=== PATIENT | female | born 1950 | race Caucasian/White ===

== ENCOUNTER 2023-03-22 14:50 | Inpatient (IN) | payer BC ==
[2023-03-22 16:46] VITALS: BMI 26.6
[2023-03-22] MEDS ORDERED: Albuterol 200 PUFF (6.7GM INHALER) INH PRN (17:44)
[2023-03-22] MEDS: Acetaminophen 325 MG TAB PO SCH ×2 (18:48→23:47)
[2023-03-22] MEDS: Acetaminophen/Codeine 30-300mg Tablet PO SCH ×2 (18:49→23:48)
[2023-03-22] MEDS: Carvedilol 25 MG TAB PO SCH (21:26)
[2023-03-22] MEDS: Losartan 25 MG TAB PO SCH (21:26)
[2023-03-22] MEDS: Atorvastatin Calcium 10 MG TAB PO SCH (21:26)
[2023-03-22] MEDS: Ascorbic Acid 500 mg Chewable Tablet PO SCH (21:26)
[2023-03-22] MEDS: Senokot S 8.6-50 MG TAB PO SCH (21:26)
[2023-03-23] MEDS: Acetaminophen/Codeine 30-300mg Tablet PO SCH ×3 (05:56→18:39)
[2023-03-23] MEDS: Acetaminophen 325 MG TAB PO SCH ×3 (05:57→18:39)
[2023-03-23] MEDS: Amlodipine 5 MG TAB PO SCH (08:41)
[2023-03-23] MEDS: Senokot S 8.6-50 MG TAB PO SCH ×2 (08:42→21:37)
[2023-03-23] MEDS: Digoxin 0.125 MG TAB PO SCH (08:42)
[2023-03-23] MEDS: Aspirin 325 mg Enteric Coated Tablet PO SCH (08:43)
[2023-03-23] MEDS: Losartan 25 MG TAB PO SCH (08:43)
[2023-03-23] MEDS: Ascorbic Acid 500 mg Chewable Tablet PO SCH ×2 (08:43→21:37)
[2023-03-23] MEDS: Ferrous Sulfate 325 MG TAB PO SCH (08:43)
[2023-03-23] MEDS: Furosemide 40 MG TAB PO SCH (08:43)
[2023-03-23] MEDS: Carvedilol 25 MG TAB PO SCH ×2 (08:44→21:37)
[2023-03-23] MEDS: Amiodarone 200 MG TAB PO SCH (08:44)
[2023-03-23] MEDS: Rivaroxaban 10 MG TAB PO SCH (18:39)
[2023-03-23] MEDS: diphenhydrAMINE 25 MG CAP PO PRN (21:37)
[2023-03-23] MEDS: Atorvastatin Calcium 10 MG TAB PO SCH (21:37)
[2023-03-24] MEDS: Acetaminophen/Codeine 30-300mg Tablet PO SCH ×4 (01:04→18:06)
[2023-03-24] MEDS: Acetaminophen 325 MG TAB PO SCH ×4 (01:05→18:02)
[2023-03-24] MEDS: Senokot S 8.6-50 MG TAB PO SCH ×2 (09:28→21:03)
[2023-03-24] MEDS: Losartan 25 MG TAB PO SCH (09:28)
[2023-03-24] MEDS: Digoxin 0.125 MG TAB PO SCH (09:29)
[2023-03-24] MEDS: Ascorbic Acid 500 mg Chewable Tablet PO SCH ×2 (09:29→21:03)
[2023-03-24] MEDS: Amlodipine 5 MG TAB PO SCH (09:30)
[2023-03-24] MEDS: Furosemide 40 MG TAB PO SCH (09:31)
[2023-03-24] MEDS: Aspirin 325 mg Enteric Coated Tablet PO SCH (09:31)
[2023-03-24] MEDS: Ferrous Sulfate 325 MG TAB PO SCH (09:31)
[2023-03-24] MEDS: Amiodarone 200 MG TAB PO SCH (09:31)
[2023-03-24] MEDS: Carvedilol 25 MG TAB PO SCH ×2 (09:32→21:03)
[2023-03-24] MEDS: Rivaroxaban 10 MG TAB PO SCH (17:32)
[2023-03-24] MEDS: Atorvastatin Calcium 10 MG TAB PO SCH (21:03)
[2023-03-25 01:12] LABS: Bilirubin Negative (Negative); Blood, Urine Negative (Negative); Clarity Clear (Clear); Glucose, Urine (Dipstick) Negative (Negative); Ketone, Urine Negative (Negative); Leukocyte Negative (Negative); Nitrite Negative (Negative); Protein, Urine (Dipstick) Negative (Neg-Trace); Specific Gravity, Urine 1.015 (1.005-1.030); Urobilinogen 0.2 mg/dL (Less than 2); pH, Urine 5.5 (5.0-9.0)
[2023-03-25 01:14] LABS: Bacteria/HPF Rare-Few HPF (None Seen); CAUTI Indications for Culture Alt mental st,lethar; Mucous/LPF None Seen LPF (<2+); RBC/HPF None Seen HPF (0-3); Squamous Epithelial None Seen HPF (0-3); WBC/HPF None Seen HPF (0-3)
[2023-03-25 01:15] LABS: Urine Culture Reflex No No
[2023-03-25] MEDS: Acetaminophen 325 MG TAB PO SCH ×2 (01:41→05:11)
[2023-03-25] MEDS: Acetaminophen/Codeine 30-300mg Tablet PO SCH ×2 (01:42→05:14)
[2023-03-25] MEDS: Ascorbic Acid 500 mg Chewable Tablet PO SCH ×2 (08:34→21:11)
[2023-03-25] MEDS: Digoxin 0.125 MG TAB PO SCH (08:34)
[2023-03-25] MEDS: Carvedilol 25 MG TAB PO SCH ×2 (08:35→21:11)
[2023-03-25] MEDS: Aspirin 325 mg Enteric Coated Tablet PO SCH (08:35)
[2023-03-25] MEDS: Amlodipine 5 MG TAB PO SCH (08:35)
[2023-03-25] MEDS: Amiodarone 200 MG TAB PO SCH (08:35)
[2023-03-25] MEDS: Senokot S 8.6-50 MG TAB PO SCH ×2 (08:35→21:11)
[2023-03-25] MEDS: Ferrous Sulfate 325 MG TAB PO SCH (08:35)
[2023-03-25] MEDS: Losartan 25 MG TAB PO SCH (08:36)
[2023-03-25] MEDS: Furosemide 40 MG TAB PO SCH (08:36)
[2023-03-25] MEDS: Acetaminophen 325 MG TAB PO PRN ×2 (12:33→21:16)
[2023-03-25] MEDS: Rivaroxaban 10 MG TAB PO SCH (17:56)
[2023-03-25] MEDS: Atorvastatin Calcium 10 MG TAB PO SCH (21:11)
[2023-03-25] MEDS: diphenhydrAMINE 25 MG CAP PO PRN (21:17)
[2023-03-26] MEDS: Amlodipine 5 MG TAB PO SCH (08:28)
[2023-03-26] MEDS: Digoxin 0.125 MG TAB PO SCH (08:28)
[2023-03-26] MEDS: Losartan 25 MG TAB PO SCH (08:29)
[2023-03-26] MEDS: Furosemide 40 MG TAB PO SCH (08:29)
[2023-03-26] MEDS: Senokot S 8.6-50 MG TAB PO SCH ×2 (08:29→20:13)
[2023-03-26] MEDS: Ascorbic Acid 500 mg Chewable Tablet PO SCH ×2 (08:29→20:14)
[2023-03-26] MEDS: Amiodarone 200 MG TAB PO SCH (08:30)
[2023-03-26] MEDS: Aspirin 325 mg Enteric Coated Tablet PO SCH (08:30)
[2023-03-26] MEDS: Ferrous Sulfate 325 MG TAB PO SCH (08:30)
[2023-03-26] MEDS: Carvedilol 25 MG TAB PO SCH ×2 (08:31→20:15)
[2023-03-26] MEDS: Rivaroxaban 10 MG TAB PO SCH (16:46)
[2023-03-26] MEDS: Cyclobenzaprine 10 MG TAB PO PRN (16:48)
[2023-03-26] MEDS: Atorvastatin Calcium 10 MG TAB PO SCH (20:14)
[2023-03-26] MEDS: diphenhydrAMINE 25 MG CAP PO PRN (20:14)
[2023-03-26] MEDS: Acetaminophen 325 MG TAB PO PRN (20:14)
[2023-03-27] MEDS: Senokot S 8.6-50 MG TAB PO SCH ×2 (11:19→20:31)
[2023-03-27] MEDS: Aspirin 325 mg Enteric Coated Tablet PO SCH (11:19)
[2023-03-27] MEDS: Ferrous Sulfate 325 MG TAB PO SCH (11:19)
[2023-03-27] MEDS: Ascorbic Acid 500 mg Chewable Tablet PO SCH ×2 (11:20→20:31)
[2023-03-27] MEDS: Digoxin 0.125 MG TAB PO SCH (11:20)
[2023-03-27] MEDS: Amiodarone 200 MG TAB PO SCH (11:20)
[2023-03-27] MEDS: Acetaminophen 325 MG TAB PO PRN ×2 (11:28→20:31)
[2023-03-27] MEDS: Losartan 25 MG TAB PO SCH (12:00)
[2023-03-27] MEDS: Furosemide 40 MG TAB PO SCH (12:00)
[2023-03-27] MEDS: Carvedilol 25 MG TAB PO SCH ×2 (12:00→20:31)
[2023-03-27] MEDS: Amlodipine 5 MG TAB PO SCH (12:02)
[2023-03-27] MEDS: Rivaroxaban 10 MG TAB PO SCH (18:08)
[2023-03-27] MEDS: diphenhydrAMINE 25 MG CAP PO PRN (20:31)
[2023-03-28] MEDS: Atorvastatin Calcium 10 MG TAB PO SCH ×2 (00:16→20:37)
[2023-03-28 05:23] LABS: Hemoglobin 10.6 g/dL (12.0-16.0); Platelet Count 283 10x3/uL (130-400)
[2023-03-28] MEDS: Senokot S 8.6-50 MG TAB PO SCH ×2 (09:09→20:36)
[2023-03-28] MEDS: Digoxin 0.125 MG TAB PO SCH (09:12)
[2023-03-28] MEDS: Aspirin 325 mg Enteric Coated Tablet PO SCH (09:12)
[2023-03-28] MEDS: Amiodarone 200 MG TAB PO SCH (09:13)
[2023-03-28] MEDS: Furosemide 40 MG TAB PO SCH (09:13)
[2023-03-28] MEDS: Ferrous Sulfate 325 MG TAB PO SCH (09:14)
[2023-03-28] MEDS: Ascorbic Acid 500 mg Chewable Tablet PO SCH ×2 (09:14→20:37)
[2023-03-28] MEDS: Carvedilol 25 MG TAB PO SCH ×2 (09:14→20:35)
[2023-03-28] MEDS: Losartan 25 MG TAB PO SCH (09:14)
[2023-03-28] MEDS: Amlodipine 5 MG TAB PO SCH (09:15)
[2023-03-28] MEDS: Acetaminophen 325 MG TAB PO PRN ×2 (10:46→20:35)
[2023-03-28] MEDS: Rivaroxaban 15 MG TAB PO SCH (17:01)
[2023-03-28] MEDS: diphenhydrAMINE 25 MG CAP PO PRN (20:37)
[2023-03-29] MEDS: Acetaminophen 325 MG TAB PO PRN ×2 (08:27→21:28)
[2023-03-29] MEDS: Aspirin 325 mg Enteric Coated Tablet PO SCH (08:28)
[2023-03-29] MEDS: Ferrous Sulfate 325 MG TAB PO SCH (08:28)
[2023-03-29] MEDS: Digoxin 0.125 MG TAB PO SCH (08:28)
[2023-03-29] MEDS: Losartan 25 MG TAB PO SCH (08:28)
[2023-03-29] MEDS: Amiodarone 200 MG TAB PO SCH (08:29)
[2023-03-29] MEDS: Carvedilol 25 MG TAB PO SCH ×2 (08:29→21:28)
[2023-03-29] MEDS: Senokot S 8.6-50 MG TAB PO SCH ×2 (08:29→21:29)
[2023-03-29] MEDS: Ascorbic Acid 500 mg Chewable Tablet PO SCH ×2 (08:29→21:28)
[2023-03-29] MEDS: Furosemide 40 MG TAB PO SCH (08:29)
[2023-03-29] MEDS: Amlodipine 5 MG TAB PO SCH (08:30)
[2023-03-29] MEDS: Cyclobenzaprine 10 MG TAB PO PRN (13:58)
[2023-03-29] MEDS: Rivaroxaban 15 MG TAB PO SCH (17:23)
[2023-03-29] MEDS: Atorvastatin Calcium 10 MG TAB PO SCH (21:28)
[2023-03-29] MEDS: diphenhydrAMINE 25 MG CAP PO PRN (23:09)
[2023-03-30] MEDS: Acetaminophen 325 MG TAB PO PRN (08:43)
[2023-03-30] MEDS: Senokot S 8.6-50 MG TAB PO SCH ×2 (08:44→20:18)
[2023-03-30] MEDS: Ascorbic Acid 500 mg Chewable Tablet PO SCH ×2 (08:45→20:18)
[2023-03-30] MEDS: Digoxin 0.125 MG TAB PO SCH (08:45)
[2023-03-30] MEDS: Carvedilol 25 MG TAB PO SCH ×2 (08:45→09:06)
[2023-03-30] MEDS: Ferrous Sulfate 325 MG TAB PO SCH (08:45)
[2023-03-30] MEDS: Amiodarone 200 MG TAB PO SCH (08:45)
[2023-03-30] MEDS: Aspirin 325 mg Enteric Coated Tablet PO SCH (08:45)
[2023-03-30] MEDS: Amlodipine 5 MG TAB PO SCH (08:46)
[2023-03-30] MEDS: Furosemide 40 MG TAB PO SCH (08:46)
[2023-03-30] MEDS: Losartan 25 MG TAB PO SCH (08:56)
[2023-03-30] MEDS: Carvedilol 6.25 MG TAB PO SCH (16:50)
[2023-03-30] MEDS: Rivaroxaban 15 MG TAB PO SCH (16:51)
[2023-03-30] MEDS: Cyclobenzaprine 10 MG TAB PO PRN (20:18)
[2023-03-30] MEDS: Atorvastatin Calcium 10 MG TAB PO SCH (20:18)
[2023-03-31] MEDS: Losartan 25 MG TAB PO SCH (09:32)
[2023-03-31] MEDS: Senokot S 8.6-50 MG TAB PO SCH ×2 (09:33→21:05)
[2023-03-31] MEDS: Ferrous Sulfate 325 MG TAB PO SCH (09:34)
[2023-03-31] MEDS: Aspirin 325 mg Enteric Coated Tablet PO SCH (09:35)
[2023-03-31] MEDS: Digoxin 0.125 MG TAB PO SCH (09:35)
[2023-03-31] MEDS: Carvedilol 6.25 MG TAB PO SCH ×2 (09:37→20:18)
[2023-03-31] MEDS: Ascorbic Acid 500 mg Chewable Tablet PO SCH ×2 (09:37→21:05)
[2023-03-31] MEDS: Furosemide 40 MG TAB PO SCH (09:37)
[2023-03-31] MEDS: Amiodarone 200 MG TAB PO SCH (09:37)
[2023-03-31 14:31] LABS: Bacteria/HPF Rare-Few HPF (None Seen); RBC/HPF None Seen HPF (0-3); WBC/HPF None Seen HPF (0-3)
[2023-03-31] MEDS: Rivaroxaban 15 MG TAB PO SCH (20:18)
[2023-03-31] MEDS: Atorvastatin Calcium 10 MG TAB PO SCH (21:05)
[2023-03-31] MEDS: Cyclobenzaprine 10 MG TAB PO PRN (21:06)
[2023-04-01] MEDS: Aspirin 325 mg Enteric Coated Tablet PO SCH (07:45)
[2023-04-01] MEDS: Senokot S 8.6-50 MG TAB PO SCH ×2 (07:45→20:28)
[2023-04-01] MEDS: Digoxin 0.125 MG TAB PO SCH (07:45)
[2023-04-01] MEDS: Amiodarone 200 MG TAB PO SCH (07:46)
[2023-04-01] MEDS: Ascorbic Acid 500 mg Chewable Tablet PO SCH ×2 (07:46→20:28)
[2023-04-01] MEDS: Losartan 25 MG TAB PO SCH (07:46)
[2023-04-01] MEDS: Ferrous Sulfate 325 MG TAB PO SCH (07:47)
[2023-04-01] MEDS: Furosemide 40 MG TAB PO SCH (07:47)
[2023-04-01] MEDS: Carvedilol 6.25 MG TAB PO SCH ×2 (07:50→16:37)
[2023-04-01] MEDS: Rivaroxaban 15 MG TAB PO SCH (16:37)
[2023-04-01] MEDS: Cyclobenzaprine 10 MG TAB PO PRN (20:27)
[2023-04-01] MEDS: Acetaminophen 325 MG TAB PO PRN (20:27)
[2023-04-01] MEDS: Atorvastatin Calcium 10 MG TAB PO SCH (20:28)
[2023-04-02] MEDS: Acetaminophen 325 MG TAB PO PRN ×2 (02:35→21:41)
[2023-04-02] MEDS: Senokot S 8.6-50 MG TAB PO SCH ×2 (09:02→20:23)
[2023-04-02] MEDS: Ferrous Sulfate 325 MG TAB PO SCH (09:03)
[2023-04-02] MEDS: Losartan 25 MG TAB PO SCH (09:03)
[2023-04-02] MEDS: Amiodarone 200 MG TAB PO SCH (09:04)
[2023-04-02] MEDS: Carvedilol 6.25 MG TAB PO SCH ×2 (09:04→17:12)
[2023-04-02] MEDS: Furosemide 40 MG TAB PO SCH (09:04)
[2023-04-02] MEDS: Aspirin 325 mg Enteric Coated Tablet PO SCH (09:04)
[2023-04-02] MEDS: Digoxin 0.125 MG TAB PO SCH (09:04)
[2023-04-02] MEDS: Ascorbic Acid 500 mg Chewable Tablet PO SCH ×2 (09:04→20:23)
[2023-04-02] MEDS: Rivaroxaban 15 MG TAB PO SCH (17:12)
[2023-04-02] MEDS: Cyclobenzaprine 10 MG TAB PO PRN (20:23)
[2023-04-02] MEDS: Atorvastatin Calcium 10 MG TAB PO SCH (20:23)
[2023-04-03] MEDS: Amiodarone 200 MG TAB PO SCH (10:16)
[2023-04-03] MEDS: Digoxin 0.125 MG TAB PO SCH (10:16)
[2023-04-03] MEDS: Senokot S 8.6-50 MG TAB PO SCH ×2 (10:17→21:44)
[2023-04-03] MEDS: Ferrous Sulfate 325 MG TAB PO SCH (10:17)
[2023-04-03] MEDS: Furosemide 40 MG TAB PO SCH (10:17)
[2023-04-03] MEDS: Losartan 25 MG TAB PO SCH (10:17)
[2023-04-03] MEDS: Ascorbic Acid 500 mg Chewable Tablet PO SCH ×2 (10:18→21:01)
[2023-04-03] MEDS: Aspirin 325 mg Enteric Coated Tablet PO SCH (10:18)
[2023-04-03] MEDS: Carvedilol 6.25 MG TAB PO SCH ×2 (10:23→17:13)
[2023-04-03] MEDS: Acetaminophen 325 MG TAB PO PRN ×2 (10:27→17:13)
[2023-04-03] MEDS: Rivaroxaban 15 MG TAB PO SCH (17:13)
[2023-04-03] MEDS: Cyclobenzaprine 10 MG TAB PO PRN (21:01)
[2023-04-03] MEDS: Atorvastatin Calcium 10 MG TAB PO SCH (21:01)
[2023-04-04] MEDS: Digoxin 0.125 MG TAB PO SCH (09:37)
[2023-04-04] MEDS: Senokot S 8.6-50 MG TAB PO SCH ×2 (09:38→20:41)
[2023-04-04] MEDS: Ferrous Sulfate 325 MG TAB PO SCH (09:38)
[2023-04-04] MEDS: Aspirin 325 mg Enteric Coated Tablet PO SCH (09:39)
[2023-04-04] MEDS: Losartan 25 MG TAB PO SCH (09:39)
[2023-04-04] MEDS: Carvedilol 6.25 MG TAB PO SCH ×2 (09:39→17:06)
[2023-04-04] MEDS: Furosemide 40 MG TAB PO SCH (09:40)
[2023-04-04] MEDS: Ascorbic Acid 500 mg Chewable Tablet PO SCH ×2 (09:40→20:41)
[2023-04-04] MEDS: Amiodarone 200 MG TAB PO SCH (09:40)
[2023-04-04] MEDS: Acetaminophen 325 MG TAB PO PRN (09:45)
[2023-04-04] MEDS: Rivaroxaban 15 MG TAB PO SCH (17:06)
[2023-04-04] MEDS: Cyclobenzaprine 10 MG TAB PO PRN (20:41)
[2023-04-04] MEDS: Atorvastatin Calcium 10 MG TAB PO SCH (20:41)
[2023-04-05] MEDS: Digoxin 0.125 MG TAB PO SCH (08:04)
[2023-04-05] MEDS: Losartan 25 MG TAB PO SCH (08:05)
[2023-04-05] MEDS: Amiodarone 200 MG TAB PO SCH (08:05)
[2023-04-05] MEDS: Ascorbic Acid 500 mg Chewable Tablet PO SCH ×2 (08:05→21:03)
[2023-04-05] MEDS: Furosemide 40 MG TAB PO SCH (08:06)
[2023-04-05] MEDS: Carvedilol 6.25 MG TAB PO SCH ×2 (08:06→16:16)
[2023-04-05] MEDS: Senokot S 8.6-50 MG TAB PO SCH ×2 (08:07→21:03)
[2023-04-05] MEDS: Ferrous Sulfate 325 MG TAB PO SCH (08:07)
[2023-04-05] MEDS: Aspirin 325 mg Enteric Coated Tablet PO SCH (08:07)
[2023-04-05] MEDS: Cyclobenzaprine 10 MG TAB PO PRN (10:18)
[2023-04-05] MEDS: Rivaroxaban 15 MG TAB PO SCH (16:17)
[2023-04-05] MEDS: Atorvastatin Calcium 10 MG TAB PO SCH (21:03)
[2023-04-06 05:20] LABS: Hemoglobin 11.2 g/dL (12.0-16.0); Platelet Count 257 10x3/uL (130-400)
[2023-04-06] MEDS: Digoxin 0.125 MG TAB PO SCH (09:05)
[2023-04-06] MEDS: Aspirin 325 mg Enteric Coated Tablet PO SCH (09:05)
[2023-04-06] MEDS: Losartan 25 MG TAB PO SCH (09:05)
[2023-04-06] MEDS: Carvedilol 6.25 MG TAB PO SCH ×2 (09:05→16:50)
[2023-04-06] MEDS: Furosemide 40 MG TAB PO SCH (09:05)
[2023-04-06] MEDS: Amiodarone 200 MG TAB PO SCH (09:05)
[2023-04-06] MEDS: Ascorbic Acid 500 mg Chewable Tablet PO SCH ×2 (09:06→21:52)
[2023-04-06] MEDS: Senokot S 8.6-50 MG TAB PO SCH ×2 (09:06→21:52)
[2023-04-06] MEDS: Ferrous Sulfate 325 MG TAB PO SCH (09:06)
[2023-04-06] MEDS: Rivaroxaban 15 MG TAB PO SCH (16:50)
[2023-04-06] MEDS: Atorvastatin Calcium 10 MG TAB PO SCH (21:52)
[2023-04-07] MEDS: Digoxin 0.125 MG TAB PO SCH (09:39)
[2023-04-07] MEDS: Aspirin 325 mg Enteric Coated Tablet PO SCH (09:39)
[2023-04-07] MEDS: Ascorbic Acid 500 mg Chewable Tablet PO SCH ×2 (09:40→20:50)
[2023-04-07] MEDS: Furosemide 40 MG TAB PO SCH (09:40)
[2023-04-07] MEDS: Losartan 25 MG TAB PO SCH (09:40)
[2023-04-07] MEDS: Amiodarone 200 MG TAB PO SCH (09:40)
[2023-04-07] MEDS: Carvedilol 6.25 MG TAB PO SCH ×2 (09:40→17:26)
[2023-04-07] MEDS: Ferrous Sulfate 325 MG TAB PO SCH (09:40)
[2023-04-07] MEDS: Senokot S 8.6-50 MG TAB PO SCH ×2 (14:54→20:51)
[2023-04-07] MEDS: Rivaroxaban 15 MG TAB PO SCH (17:23)
[2023-04-07] MEDS: Atorvastatin Calcium 10 MG TAB PO SCH (20:50)
[2023-04-08] MEDS: Ferrous Sulfate 325 MG TAB PO SCH (09:04)
[2023-04-08] MEDS: Losartan 25 MG TAB PO SCH (09:04)
[2023-04-08] MEDS: Senokot S 8.6-50 MG TAB PO SCH ×2 (09:04→20:33)
[2023-04-08] MEDS: Digoxin 0.125 MG TAB PO SCH (09:04)
[2023-04-08] MEDS: Ascorbic Acid 500 mg Chewable Tablet PO SCH ×2 (09:05→20:33)
[2023-04-08] MEDS: Furosemide 40 MG TAB PO SCH (09:05)
[2023-04-08] MEDS: Aspirin 325 mg Enteric Coated Tablet PO SCH (09:05)
[2023-04-08] MEDS: Amiodarone 200 MG TAB PO SCH (09:05)
[2023-04-08] MEDS: Carvedilol 6.25 MG TAB PO SCH ×2 (09:05→17:10)
[2023-04-08] MEDS: Rivaroxaban 15 MG TAB PO SCH (17:10)
[2023-04-08] MEDS: Atorvastatin Calcium 10 MG TAB PO SCH (20:33)
[2023-04-08] MEDS: Acetaminophen 325 MG TAB PO PRN (20:34)
[2023-04-08] MEDS: Cyclobenzaprine 10 MG TAB PO PRN (20:42)
[2023-04-09] MEDS: Acetaminophen 325 MG TAB PO PRN ×2 (01:59→16:18)
[2023-04-09] MEDS: Carvedilol 6.25 MG TAB PO SCH ×2 (08:57→18:17)
[2023-04-09] MEDS: Aspirin 325 mg Enteric Coated Tablet PO SCH (08:58)
[2023-04-09] MEDS: Ascorbic Acid 500 mg Chewable Tablet PO SCH ×2 (08:58→20:25)
[2023-04-09] MEDS: Furosemide 40 MG TAB PO SCH ×2 (08:58→15:25)
[2023-04-09] MEDS: Ferrous Sulfate 325 MG TAB PO SCH (08:58)
[2023-04-09] MEDS: Losartan 25 MG TAB PO SCH (08:58)
[2023-04-09] MEDS: Digoxin 0.125 MG TAB PO SCH (08:58)
[2023-04-09] MEDS: Amiodarone 200 MG TAB PO SCH (08:58)
[2023-04-09] MEDS: Senokot S 8.6-50 MG TAB PO SCH ×3 (08:59→20:25)
[2023-04-09] MEDS: traMADol HCl 50 MG TAB PO PRN (16:19)
[2023-04-09] MEDS: Rivaroxaban 15 MG TAB PO SCH (18:17)
[2023-04-09] MEDS: Atorvastatin Calcium 10 MG TAB PO SCH (20:25)
[2023-04-10] MEDS: Aspirin 325 mg Enteric Coated Tablet PO SCH (08:18)
[2023-04-10] MEDS: Amiodarone 200 MG TAB PO SCH (08:18)
[2023-04-10] MEDS: Carvedilol 6.25 MG TAB PO SCH ×2 (08:19→16:51)
[2023-04-10] MEDS: Ascorbic Acid 500 mg Chewable Tablet PO SCH ×2 (08:19→21:12)
[2023-04-10] MEDS: Losartan 25 MG TAB PO SCH (08:19)
[2023-04-10] MEDS: Digoxin 0.125 MG TAB PO SCH (08:19)
[2023-04-10] MEDS: Senokot S 8.6-50 MG TAB PO SCH ×2 (08:20→21:12)
[2023-04-10] MEDS: Furosemide 40 MG TAB PO SCH (08:20)
[2023-04-10] MEDS: Ferrous Sulfate 325 MG TAB PO SCH (08:20)
[2023-04-10] MEDS: Rivaroxaban 15 MG TAB PO SCH (16:52)
[2023-04-10] MEDS: traMADol HCl 50 MG TAB PO PRN (18:13)
[2023-04-10] MEDS: Acetaminophen 325 MG TAB PO PRN (18:13)
[2023-04-10] MEDS: Atorvastatin Calcium 10 MG TAB PO SCH (21:12)
[2023-04-11] MEDS: Senokot S 8.6-50 MG TAB PO SCH ×2 (08:30→21:08)
[2023-04-11] MEDS: Ferrous Sulfate 325 MG TAB PO SCH (08:30)
[2023-04-11] MEDS: Ascorbic Acid 500 mg Chewable Tablet PO SCH ×2 (08:32→21:08)
[2023-04-11] MEDS: Amiodarone 200 MG TAB PO SCH ×2 (08:32→08:44)
[2023-04-11] MEDS: Furosemide 40 MG TAB PO SCH (08:32)
[2023-04-11] MEDS: Digoxin 0.125 MG TAB PO SCH (08:33)
[2023-04-11] MEDS: Aspirin 325 mg Enteric Coated Tablet PO SCH (08:33)
[2023-04-11] MEDS: Carvedilol 6.25 MG TAB PO SCH ×2 (08:34→17:00)
[2023-04-11] MEDS: Losartan 25 MG TAB PO SCH (08:35)
[2023-04-11] MEDS: Acetaminophen 325 MG TAB PO PRN (16:04)
[2023-04-11] MEDS: traMADol HCl 50 MG TAB PO PRN (16:05)
[2023-04-11] MEDS: Rivaroxaban 15 MG TAB PO SCH (17:00)
[2023-04-11] MEDS: Atorvastatin Calcium 10 MG TAB PO SCH (21:08)
[2023-04-12] MEDS: Amiodarone 200 MG TAB PO SCH (08:28)
[2023-04-12] MEDS: Aspirin 325 mg Enteric Coated Tablet PO SCH (08:28)
[2023-04-12] MEDS: Carvedilol 6.25 MG TAB PO SCH ×2 (08:28→16:30)
[2023-04-12] MEDS: Ferrous Sulfate 325 MG TAB PO SCH (08:28)
[2023-04-12] MEDS: Ascorbic Acid 500 mg Chewable Tablet PO SCH ×2 (08:28→20:32)
[2023-04-12] MEDS: Furosemide 40 MG TAB PO SCH (08:28)
[2023-04-12] MEDS: Losartan 25 MG TAB PO SCH (08:28)
[2023-04-12] MEDS: Senokot S 8.6-50 MG TAB PO SCH ×2 (08:29→20:32)
[2023-04-12] MEDS: Digoxin 0.125 MG TAB PO SCH (08:30)
[2023-04-12] MEDS: Acetaminophen 325 MG TAB PO PRN (16:27)
[2023-04-12] MEDS: traMADol HCl 50 MG TAB PO PRN (16:28)
[2023-04-12] MEDS: Rivaroxaban 15 MG TAB PO SCH (16:30)
[2023-04-12] MEDS: Atorvastatin Calcium 10 MG TAB PO SCH (20:32)
[2023-04-13] MEDS: Furosemide 40 MG TAB PO SCH (08:16)
[2023-04-13] MEDS: Digoxin 0.125 MG TAB PO SCH (08:16)
[2023-04-13] MEDS: Carvedilol 6.25 MG TAB PO SCH ×2 (08:17→16:51)
[2023-04-13] MEDS: Aspirin 325 mg Enteric Coated Tablet PO SCH (08:17)
[2023-04-13] MEDS: Ferrous Sulfate 325 MG TAB PO SCH (08:17)
[2023-04-13] MEDS: Senokot S 8.6-50 MG TAB PO SCH ×2 (08:17→20:16)
[2023-04-13] MEDS: Losartan 25 MG TAB PO SCH (08:18)
[2023-04-13] MEDS: Amiodarone 200 MG TAB PO SCH (08:18)
[2023-04-13] MEDS: Ascorbic Acid 500 mg Chewable Tablet PO SCH ×2 (08:18→20:16)
[2023-04-13] MEDS: Rivaroxaban 15 MG TAB PO SCH (16:51)
[2023-04-13] MEDS: Atorvastatin Calcium 10 MG TAB PO SCH (20:15)
[2023-04-13] MEDS: Acetaminophen 325 MG TAB PO PRN (20:16)
[2023-04-14] MEDS: Cyclobenzaprine 10 MG TAB PO PRN (01:40)
[2023-04-14 05:11] LABS: Hemoglobin 11.2 g/dL (12.0-16.0); Platelet Count 188 10x3/uL (130-400)
[2023-04-14] MEDS: Carvedilol 6.25 MG TAB PO SCH ×2 (08:35→17:22)
[2023-04-14] MEDS: Aspirin 325 mg Enteric Coated Tablet PO SCH (08:37)
[2023-04-14] MEDS: Losartan 25 MG TAB PO SCH (08:37)
[2023-04-14] MEDS: Ferrous Sulfate 325 MG TAB PO SCH (08:38)
[2023-04-14] MEDS: Amiodarone 200 MG TAB PO SCH (08:38)
[2023-04-14] MEDS: Digoxin 0.125 MG TAB PO SCH (08:38)
[2023-04-14] MEDS: Furosemide 40 MG TAB PO SCH (08:38)
[2023-04-14] MEDS: Senokot S 8.6-50 MG TAB PO SCH ×2 (08:38→21:25)
[2023-04-14] MEDS: Ascorbic Acid 500 mg Chewable Tablet PO SCH ×2 (08:38→21:26)
[2023-04-14] MEDS: Rivaroxaban 15 MG TAB PO SCH (17:22)
[2023-04-14] MEDS: Atorvastatin Calcium 10 MG TAB PO SCH (21:26)
[2023-04-14] MEDS: Melatonin 3 MG TAB PO PRN (21:26)
[2023-04-15] MEDS: Carvedilol 6.25 MG TAB PO SCH ×2 (08:13→17:12)
[2023-04-15] MEDS: Digoxin 0.125 MG TAB PO SCH (08:13)
[2023-04-15] MEDS: Ascorbic Acid 500 mg Chewable Tablet PO SCH ×2 (08:13→20:27)
[2023-04-15] MEDS: Ferrous Sulfate 325 MG TAB PO SCH (08:13)
[2023-04-15] MEDS: Aspirin 325 mg Enteric Coated Tablet PO SCH (08:13)
[2023-04-15] MEDS: Senokot S 8.6-50 MG TAB PO SCH ×2 (08:14→20:26)
[2023-04-15] MEDS: Furosemide 40 MG TAB PO SCH (08:14)
[2023-04-15] MEDS: Losartan 25 MG TAB PO SCH (08:14)
[2023-04-15] MEDS: Amiodarone 200 MG TAB PO SCH (08:14)
[2023-04-15] MEDS: Rivaroxaban 15 MG TAB PO SCH (17:12)
[2023-04-15] MEDS: Acetaminophen 325 MG TAB PO PRN (20:27)
[2023-04-15] MEDS: Atorvastatin Calcium 10 MG TAB PO SCH (20:27)
[2023-04-15] MEDS: Melatonin 3 MG TAB PO PRN (20:27)
[2023-04-16] MEDS: Losartan 25 MG TAB PO SCH (08:47)
[2023-04-16] MEDS: Carvedilol 6.25 MG TAB PO SCH ×2 (08:47→16:32)
[2023-04-16] MEDS: Amiodarone 200 MG TAB PO SCH (08:48)
[2023-04-16] MEDS: Ferrous Sulfate 325 MG TAB PO SCH (08:48)
[2023-04-16] MEDS: Aspirin 325 mg Enteric Coated Tablet PO SCH (08:48)
[2023-04-16] MEDS: Digoxin 0.125 MG TAB PO SCH (08:48)
[2023-04-16] MEDS: Ascorbic Acid 500 mg Chewable Tablet PO SCH ×2 (08:49→20:52)
[2023-04-16] MEDS: Furosemide 40 MG TAB PO SCH (08:49)
[2023-04-16] MEDS: Senokot S 8.6-50 MG TAB PO SCH ×2 (08:49→20:52)
[2023-04-16] MEDS: Rivaroxaban 15 MG TAB PO SCH (16:32)
[2023-04-16] MEDS: Melatonin 3 MG TAB PO PRN (20:52)
[2023-04-16] MEDS: Acetaminophen 325 MG TAB PO PRN (20:52)
[2023-04-16] MEDS: Atorvastatin Calcium 10 MG TAB PO SCH (20:55)
[2023-04-17] MEDS: Carvedilol 6.25 MG TAB PO SCH ×2 (08:20→17:11)
[2023-04-17] MEDS: Ascorbic Acid 500 mg Chewable Tablet PO SCH ×2 (08:20→21:30)
[2023-04-17] MEDS: Digoxin 0.125 MG TAB PO SCH (08:20)
[2023-04-17] MEDS: Amiodarone 200 MG TAB PO SCH (08:20)
[2023-04-17] MEDS: Ferrous Sulfate 325 MG TAB PO SCH (08:20)
[2023-04-17] MEDS: Furosemide 40 MG TAB PO SCH (08:20)
[2023-04-17] MEDS: Aspirin 325 mg Enteric Coated Tablet PO SCH (08:20)
[2023-04-17] MEDS: Senokot S 8.6-50 MG TAB PO SCH ×2 (08:21→21:30)
[2023-04-17] MEDS: Acetaminophen 325 MG TAB PO PRN (08:21)
[2023-04-17] MEDS: Losartan 25 MG TAB PO SCH (08:23)
[2023-04-17] MEDS: Rivaroxaban 15 MG TAB PO SCH (17:10)
[2023-04-17] MEDS: Melatonin 3 MG TAB PO PRN (21:30)
[2023-04-17] MEDS: Atorvastatin Calcium 10 MG TAB PO SCH (21:30)
[2023-04-18] MEDS: Furosemide 40 MG TAB PO SCH (08:28)
[2023-04-18] MEDS: Aspirin 325 mg Enteric Coated Tablet PO SCH (08:32)
[2023-04-18] MEDS: Senokot S 8.6-50 MG TAB PO SCH ×2 (08:32→21:36)
[2023-04-18] MEDS: Losartan 25 MG TAB PO SCH (08:33)
[2023-04-18] MEDS: Acetaminophen 325 MG TAB PO PRN (08:33)
[2023-04-18] MEDS: Ascorbic Acid 500 mg Chewable Tablet PO SCH ×2 (08:33→21:36)
[2023-04-18] MEDS: Digoxin 0.125 MG TAB PO SCH (08:35)
[2023-04-18] MEDS: Amiodarone 200 MG TAB PO SCH (08:35)
[2023-04-18] MEDS: Carvedilol 6.25 MG TAB PO SCH ×2 (08:36→17:15)
[2023-04-18] MEDS: Ferrous Sulfate 325 MG TAB PO SCH (08:37)
[2023-04-18] MEDS: Rivaroxaban 15 MG TAB PO SCH (17:13)
[2023-04-18] MEDS: Atorvastatin Calcium 10 MG TAB PO SCH (21:36)
[2023-04-18] MEDS: Melatonin 3 MG TAB PO PRN (21:36)
[2023-04-19] MEDS: Furosemide 40 MG TAB PO SCH (08:29)
[2023-04-19] MEDS: Losartan 25 MG TAB PO SCH (08:29)
[2023-04-19] MEDS: Digoxin 0.125 MG TAB PO SCH (08:30)
[2023-04-19] MEDS: Senokot S 8.6-50 MG TAB PO SCH ×2 (08:30→21:14)
[2023-04-19] MEDS: Aspirin 325 mg Enteric Coated Tablet PO SCH (08:30)
[2023-04-19] MEDS: Ascorbic Acid 500 mg Chewable Tablet PO SCH ×2 (08:30→21:14)
[2023-04-19] MEDS: Carvedilol 6.25 MG TAB PO SCH ×2 (08:30→17:05)
[2023-04-19] MEDS: Amiodarone 200 MG TAB PO SCH (08:31)
[2023-04-19] MEDS: Ferrous Sulfate 325 MG TAB PO SCH (08:31)
[2023-04-19] MEDS: Rivaroxaban 15 MG TAB PO SCH (17:05)
[2023-04-19] MEDS: Atorvastatin Calcium 10 MG TAB PO SCH (21:14)
[2023-04-19] MEDS: Melatonin 3 MG TAB PO PRN (21:14)
[2023-04-20] MEDS: Acetaminophen 325 MG TAB PO PRN (07:56)
[2023-04-20] MEDS: Amiodarone 200 MG TAB PO SCH (07:57)
[2023-04-20] MEDS: Ferrous Sulfate 325 MG TAB PO SCH (07:57)
[2023-04-20] MEDS: Aspirin 325 mg Enteric Coated Tablet PO SCH (07:57)
[2023-04-20] MEDS: Senokot S 8.6-50 MG TAB PO SCH ×2 (07:58→20:32)
[2023-04-20] MEDS: Carvedilol 6.25 MG TAB PO SCH ×2 (07:58→18:29)
[2023-04-20] MEDS: Ascorbic Acid 500 mg Chewable Tablet PO SCH ×2 (07:58→20:32)
[2023-04-20] MEDS: Furosemide 40 MG TAB PO SCH (07:58)
[2023-04-20] MEDS: Digoxin 0.125 MG TAB PO SCH (07:59)
[2023-04-20] MEDS: Losartan 25 MG TAB PO SCH (09:18)
[2023-04-20] MEDS: Rivaroxaban 15 MG TAB PO SCH (18:29)
[2023-04-20] MEDS: Atorvastatin Calcium 10 MG TAB PO SCH (20:32)
[2023-04-20] MEDS: Melatonin 3 MG TAB PO PRN (20:32)
[2023-04-21] MEDS: Losartan Potassium 50 MG TAB PO SCH (08:49)
[2023-04-21] MEDS: Digoxin 0.125 MG TAB PO SCH (08:50)
[2023-04-21] MEDS: Amiodarone 200 MG TAB PO SCH (08:50)
[2023-04-21] MEDS: Ferrous Sulfate 325 MG TAB PO SCH (08:50)
[2023-04-21] MEDS: Aspirin 325 mg Enteric Coated Tablet PO SCH (08:50)
[2023-04-21] MEDS: Carvedilol 6.25 MG TAB PO SCH ×2 (08:51→17:24)
[2023-04-21] MEDS: Senokot S 8.6-50 MG TAB PO SCH ×2 (08:51→20:31)
[2023-04-21] MEDS: Furosemide 40 MG TAB PO SCH (08:51)
[2023-04-21] MEDS: Ascorbic Acid 500 mg Chewable Tablet PO SCH ×2 (08:51→20:30)
[2023-04-21] MEDS: Rivaroxaban 15 MG TAB PO SCH (17:24)
[2023-04-21] MEDS: Melatonin 3 MG TAB PO PRN (20:30)
[2023-04-21] MEDS: Atorvastatin Calcium 10 MG TAB PO SCH (20:30)
[2023-04-22] MEDS: Aspirin 325 mg Enteric Coated Tablet PO SCH (08:15)
[2023-04-22] MEDS: Amiodarone 200 MG TAB PO SCH (08:15)
[2023-04-22] MEDS: Senokot S 8.6-50 MG TAB PO SCH ×2 (08:15→20:41)
[2023-04-22] MEDS: Ascorbic Acid 500 mg Chewable Tablet PO SCH ×2 (08:16→20:42)
[2023-04-22] MEDS: Ferrous Sulfate 325 MG TAB PO SCH (08:16)
[2023-04-22] MEDS: Digoxin 0.125 MG TAB PO SCH (08:17)
[2023-04-22] MEDS: Carvedilol 6.25 MG TAB PO SCH ×2 (08:17→17:13)
[2023-04-22] MEDS: Furosemide 40 MG TAB PO SCH (08:18)
[2023-04-22] MEDS: Losartan Potassium 50 MG TAB PO SCH (08:18)
[2023-04-22] MEDS: Rivaroxaban 15 MG TAB PO SCH (17:13)
[2023-04-22] MEDS: Atorvastatin Calcium 10 MG TAB PO SCH (20:42)
[2023-04-23] MEDS: Ferrous Sulfate 325 MG TAB PO SCH (08:29)
[2023-04-23] MEDS: Aspirin 325 mg Enteric Coated Tablet PO SCH (08:29)
[2023-04-23] MEDS: Furosemide 40 MG TAB PO SCH (08:29)
[2023-04-23] MEDS: Carvedilol 6.25 MG TAB PO SCH ×2 (08:29→17:05)
[2023-04-23] MEDS: Amiodarone 200 MG TAB PO SCH (08:29)
[2023-04-23] MEDS: Losartan Potassium 50 MG TAB PO SCH (08:29)
[2023-04-23] MEDS: Digoxin 0.125 MG TAB PO SCH (08:30)
[2023-04-23] MEDS: Senokot S 8.6-50 MG TAB PO SCH ×2 (08:30→21:36)
[2023-04-23] MEDS: Acetaminophen 325 MG TAB PO PRN (08:30)
[2023-04-23] MEDS: Ascorbic Acid 500 mg Chewable Tablet PO SCH ×2 (08:30→21:36)
[2023-04-23] MEDS: Rivaroxaban 15 MG TAB PO SCH (17:05)
[2023-04-23] MEDS: Atorvastatin Calcium 10 MG TAB PO SCH (21:36)
[2023-04-24 05:30] LABS: Hemoglobin 11.8 g/dL (12.0-16.0); Platelet Count 160 10x3/uL (130-400)
[2023-04-24 05:53] VITALS: TEMP 97.7
[2023-04-24] MEDS: Carvedilol 6.25 MG TAB PO SCH ×2 (08:22→17:00)
[2023-04-24] MEDS: Furosemide 40 MG TAB PO SCH (08:22)
[2023-04-24] MEDS: Amiodarone 200 MG TAB PO SCH (08:22)
[2023-04-24] MEDS: Digoxin 0.125 MG TAB PO SCH (08:22)
[2023-04-24] MEDS: Ascorbic Acid 500 mg Chewable Tablet PO SCH (08:22)
[2023-04-24] MEDS: Losartan Potassium 50 MG TAB PO SCH (08:22)
[2023-04-24] MEDS: Aspirin 325 mg Enteric Coated Tablet PO SCH (08:22)
[2023-04-24] MEDS: Ferrous Sulfate 325 MG TAB PO SCH (08:22)
[2023-04-24] MEDS: Acetaminophen 325 MG TAB PO PRN (08:23)
[2023-04-24] MEDS: Senokot S 8.6-50 MG TAB PO SCH (10:00)
[2023-04-24 16:31] VITALS: BP 127/73
[2023-04-24] MEDS: Rivaroxaban 15 MG TAB PO SCH (17:01)
== END 2023-04-24 19:04 | disposition home health service (06) | DRG 560 ==
LOC: BURMED 14:50
PROVIDERS: ADMIT Family Medicine; ATTEND Nurse Practitioner
DX: S72.142D Displaced intertrochanteric fracture of left femur, subsequent encounter for closed fracture with routine healing (principal); F05 Delirium due to known physiological condition; I48.19 Other persistent atrial fibrillation; I11.0 Hypertensive heart disease with heart failure; I50.9 Heart failure, unspecified; I95.1 Orthostatic hypotension; J45.909 Unspecified asthma, uncomplicated; M81.0 Age-related osteoporosis without current pathological fracture; I25.10 Atherosclerotic heart disease of native coronary artery without angina pectoris; Z96.651 Presence of right artificial knee joint; F32.A Depression, unspecified; R53.81 Other malaise; E78.5 Hyperlipidemia, unspecified; W18.30XD Fall on same level, unspecified, subsequent encounter; J32.9 Chronic sinusitis, unspecified; Z79.82 Long term (current) use of aspirin; Z79.899 Other long term (current) drug therapy; Z79.01 Long term (current) use of anticoagulants; Z90.49 Acquired absence of other specified parts of digestive tract
CPT/HCPCS: 36415; 70450; 81001; 81015; 82565; 85014; 85018; 85049; 87086

== ENCOUNTER 2024-05-02 14:21 | Emergency (ER) | payer BC, OTHER ==
[2024-05-02 15:00] LABS: #Basophils 0.1 thou/uL (0.0-0.2); #Eosinphils 0.5 thou/uL (0.0-0.7); #Lymphocytes 1.3 thou/uL (1.20-3.40); #Monocytes 0.6 thou/uL (0.11-0.59); #Neutrophils 4.5 thou/uL (1.40-6.50); %Basophils 0.8 % (0.0-1.0); %Eosinophils 7.5 % (0.0-10.0); %Lymphocytes 18.6 % (21.0-51.0); %Monocytes 8.2 % (0.0-10.0); Hemoglobin 12.3 g/dL (12.0-16.0); Mean Corpuscular HGB CONC 33.2 g/dL (32.0-36.0); Mean Corpuscular Volume 90.6 fl (78.0-98.0); Mean Platelet Volume 5.7 fL (7.4-10.4); Platelet Count 193 10x3/uL (130-400); RBC Distribution Width 12.3 % (11.5-14.5); Red Blood Cell (RBC) Count 4.08 mill/uL (4.20-5.40); White Blood Cell (WBC) Count 6.9 10x3/uL (4.8-10.8)
[2024-05-02 15:09] LABS: INR-International Normal Ratio 1.1; Prothrombin Time 13.9 sec (12.0-14.7)
[2024-05-02 15:18] LABS: ALT (SGPT) 10 U/L (8-55); AST (SGOT) 13 U/L (5-34); Albumin 3.6 g/dL (3.4-4.8); Alkaline Phosphatase 108 U/L (40-110); Anion Gap 11 mmol/L (10-20); BUN (Urea Nitrogen) 21 mg/dL (9.8-20.1); Bilirubin, Total 0.6 mg/dL (0.2-1.2); Calc. Creatinine Clearance 0 mL/min (70-130); Calcium 8.6 mg/dL (7.8-10.44); Carbon Dioxide 19 mmol/L (23-31); Chloride 112 mmol/L (98-107); Estimated GFR 59; Globulin 2.6 g/dL (2.4-3.5); Glucose 102 mg/dL (83-110); Potassium 4.4 mmol/L (3.5-5.1); Protein, Total 6.2 g/dL (5.8-8.1); Sodium 138 mmol/L (136-145)
[2024-05-02] MEDS ORDERED: Lidocaine 1% PF 5 ML VIAL ONE (15:48)
[2024-05-02 15:56] LABS: Bilirubin Negative (Negative); Blood, Urine Negative (Negative); Clarity Hazy (Clear); Glucose, Urine (Dipstick) Negative (Negative); Ketone, Urine Negative (Negative); Leukocyte Moderate (Negative); Nitrite Negative (Negative); Protein, Urine (Dipstick) Negative (Neg-Trace); Urobilinogen 0.2 mg/dL (Less than 2); pH, Urine 5.5 (5.0-9.0)
[2024-05-02 16:06] LABS: Bacteria/HPF 2+ HPF (None Seen); CAUTI Indications for Culture Dysuria,urgency,freq; RBC/HPF None Seen HPF (0-3); Squamous Epithelial 0-3 HPF (0-3)
[2024-05-02 16:07] LABS: Urine Culture Reflex Yes Yes
[2024-05-02] MEDS ORDERED: Nitrofurantoin Monohyd/M-Cryst 100 MG CAP ONE (16:14)
== END 2024-05-02 16:22 | disposition home or self-care (01) ==
LOC: BURERS 14:21
DX: S01.312A Laceration without foreign body of left ear, initial encounter (principal); S09.90XA Unspecified injury of head, initial encounter; N39.0 Urinary tract infection, site not specified; I11.0 Hypertensive heart disease with heart failure; I50.9 Heart failure, unspecified; I48.91 Unspecified atrial fibrillation; E78.00 Pure hypercholesterolemia, unspecified; W18.00XA Striking against unspecified object with subsequent fall, initial encounter; Y93.89 Activity, other specified; Y92.009 Unspecified place in unspecified non-institutional (private) residence as the place of occurrence of the external cause; Z79.01 Long term (current) use of anticoagulants; Z79.899 Other long term (current) drug therapy
CPT/HCPCS: 12013; 36415; 70450; 72125; 80053; 81001; 85025; 85610; 87086

== ENCOUNTER 2024-06-27 15:15 | Emergency (ER) | payer BC ==
[2024-06-27 16:01] LABS: #Basophils 0.1 thou/uL (0.0-0.2); #Eosinphils 0.7 thou/uL (0.0-0.7); #Monocytes 0.7 thou/uL (0.11-0.59); #Neutrophils 3.7 thou/uL (1.40-6.50); %Basophils 1.1 % (0.0-1.0); %Eosinophils 9.8 % (0.0-10.0); %Lymphocytes 28.3 % (21.0-51.0); %Monocytes 9.7 % (0.0-10.0); %Neutrophils 51.2 % (42.0-75.0); Hematocrit 38.4 % (36.0-47.0); Hemoglobin 12.9 g/dL (12.0-16.0); Mean Corpuscular HGB CONC 33.5 g/dL (32.0-36.0); Mean Corpuscular Hemoglobin 29.5 pg (27.0-31.0); Mean Corpuscular Volume 88.1 fl (78.0-98.0); Platelet Count 223 10x3/uL (130-400); RBC Distribution Width 12.6 % (11.5-14.5); Red Blood Cell (RBC) Count 4.36 mill/uL (4.20-5.40); White Blood Cell (WBC) Count 7.2 10x3/uL (4.8-10.8)
[2024-06-27 16:15] LABS: ALT (SGPT) 11 U/L (8-55); AST (SGOT) 14 U/L (5-34); Albumin 4.1 g/dL (3.4-4.8); Alkaline Phosphatase 121 U/L (40-110); Anion Gap 18 mmol/L (10-20); BUN (Urea Nitrogen) 16 mg/dL (9.8-20.1); Bilirubin, Total 1.1 mg/dL (0.2-1.2); Calc. Creatinine Clearance 0 mL/min (70-130); Calcium 9.4 mg/dL (7.8-10.44); Carbon Dioxide 20 mmol/L (23-31); Chloride 107 mmol/L (98-107); Estimated GFR 33; Glucose 156 mg/dL (83-110); Potassium 3.7 mmol/L (3.5-5.1); Protein, Total 7.1 g/dL (5.8-8.1); Sodium 141 mmol/L (136-145)
[2024-06-27 16:18] LABS: Troponin I Less than 0.010 ng/mL (< 0.028)
[2024-06-27 17:42] LABS: Bilirubin Negative (Negative); Blood, Urine Negative (Negative); Clarity Clear (Clear); Glucose, Urine (Dipstick) Negative (Negative); Ketone, Urine Negative (Negative); Leukocyte Small (Negative); Nitrite Negative (Negative); Protein, Urine (Dipstick) Negative (Neg-Trace); Urobilinogen 0.2 mg/dL (Less than 2); pH, Urine 5.5 (5.0-9.0)
[2024-06-27 17:48] LABS: Bacteria/HPF Rare-Few HPF (None Seen); CAUTI Indications for Culture Fever or rigors; RBC/HPF 0-3 HPF (0-3); Squamous Epithelial 0-3 HPF (0-3)
[2024-06-27 17:49] LABS: Urine Culture Reflex No No
== END 2024-06-27 18:33 | disposition home or self-care (01) ==
LOC: BURERS 15:15
DX: F03.90 Unspecified dementia, unspecified severity, without behavioral disturbance, psychotic disturbance, mood disturbance, and anxiety (principal); I11.0 Hypertensive heart disease with heart failure; I50.9 Heart failure, unspecified; I48.91 Unspecified atrial fibrillation; E78.00 Pure hypercholesterolemia, unspecified; J45.909 Unspecified asthma, uncomplicated; M81.0 Age-related osteoporosis without current pathological fracture; Z79.01 Long term (current) use of anticoagulants; Z79.899 Other long term (current) drug therapy
CPT/HCPCS: 36415; 70450; 71045; 80053; 81001; 84484; 85025; 93005; 94760; 96360

== ENCOUNTER 2024-07-21 17:33 | Outpatient (CLI) | payer BC | END 2024-07-21 17:34 | disposition home or self-care (01) | LOC: BURRAD 17:33 | PROVIDERS: ATTEND Nurse Practitioner Family | DX: M19.011 Primary osteoarthritis, right shoulder (principal); Z91.81 History of falling ==